=== PATIENT | female | born 1960 | race Caucasian/White ===

== ENCOUNTER 2016-10-13 08:36 | Observation (INO) | payer OTHER ==
[2016-10-05 08:49] LABS: BASOPHILS 0.4 %; BASOPHILS ABSOLUTE 0.03 10/3/uL (0.0-0.16); EOSINOPHILS 2.4 %; EOSINOPHILS ABSOLUTE 0.17 10/3/uL (0.0-0.53); HEMATOCRIT 41.3 % (36.0-48.0); HEMOGLOBIN 13.9 g/dL (12.0-16.0); IMMATURE GRANULOCYTES 0.1 %; IMMATURE GRANULOCYTES ABSOLUTE 0.01 10/3/uL (0.0-0.11); LYMPHOCYTES 22.5 %; LYMPHOCYTES ABSOLUTE 1.56 10/3/uL (0.67-4.30); MANUAL DIFF NO %; MEAN CORPUS HGB CONC 33.7 g/dL (32.0-36.0); MEAN CORPUSCULAR HEMOGLOB 28.1 pg (26.0-34.0); MEAN CORPUSCULAR VOLUME 83.6 fL (80-100); MEAN PLATELET VOLUME 8.2 fL (9.2-13.0); MONOCYTES 5.5 %; MONOCYTES ABSOLUTE 0.38 10/3/uL (0.21-1.20); NEUTROPHILS 69.1 %; NEUTROPHILS ABSOLUTE 4.79 10/3/uL (2.02-8.40); PLATELET COUNT 303 10/3/uL (150-400); RBC DISTRIBUTION WIDTH 13.7 % (12.0-16.0); RED CELL COUNT 4.94 10/6/uL (4.0-5.6); WHITE BLOOD CELLS 6.9 10/3/uL (4.5-10.5)
[2016-10-05 08:57] LABS: BUN (BLOOD UREA NITROGEN) 14 MG/DL (6-23); CALCIUM, SERUM 9.1 MG/DL (8.5-10.4); CHLORIDE, SERUM 108 MMOL/L (96-112); CO2 (CARBON DIOXIDE) 27 MMOL/L (24-34); CREATININE 0.65 MG/DL (0.55-1.02); GFR AFRICAN AMERICAN 114 ML/MIN (>=60); GFR NON AFRICAN AMERICAN 99 ML/MIN (>=60); GLUCOSE, SERUM 85 MG/DL (60-99); POTASSIUM, SERUM 3.7 MMOL/L (3.5-5.3); SODIUM, SERUM 143 MMOL/L (135-148)
--- NOTE | ~2016-10-13 | OP ---
Record Of Operation [facility] [address] [place]. [address] NAME: DONNA STRANGE : 58 STATUS : ADM David PAT#: [id number] AGE: 56 ADM/REG DATE : 10/13/16 MR#: [id number] REPORT SERV DATE: 10/13/16 DICTATED BY: LOVELY DE LA ROSA DATE: 10/13/16 REPORT STATUS : Draft TRANSCRIBED BY: MODJohnny DATE: 10/13/16 DATE OF PROCEDURE: 10/13/2016 SERVICE: Otolaryngology. PREOPERATIVE DIAGNOSES: 1. Thyroid goiter. 2. Suspicious nodule. POSTOPERATIVE DIAGNOSES: 1. Thyroid goiter. 2. Suspicious nodule. PROCEDURE: Total thyroidectomy. ANESTHESIA: General endotracheal anesthesia with a NIM monitoring tube. FINDINGS: The patient had an enlarged very rubbery thyroid gland with multiple nodules. The right recurrent laryngeal nerves were identified and stimulated in the case. Parathyroid glands were left in situ. 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 Genetic testing can be done and the estimated risk for cancer was approximately 40%. Given this fact and her compressive symptoms, I recommended total thyroidectomy. STATEMENT OF OPERATION: The patient was brought to the operating room in supine position, transferred over to the operating room table. After all pressure points were padded and general endotracheal anesthesia was established with a NIM monitoring tube. Her neck was placed in slight extension with a shoulder roll and incision was marked out in a natural relaxed skin tension line roughly over the area of the cricoid. It was injected with 4 mL of 1% lidocaine with epinephrine. She was then prepped and draped in the usual fashion. A #15 blade was used to make the incision down through the platysma. [place] skin retracting hooks were placed into the wound. The midline raphe between the strap muscles was identified and dissected bluntly with baby Metzenbaum scissors and Bovie cautery. The strap muscles were then gently lifted off the anterior face of the left hemithyroid. The superior pole was released from its fibrovascular attachments using a Doty dissector and Harmonic scalpel. In this fashion, we worked from superior to inferior releasing all the fibrovascular attachments. I did transect about a third of the strap muscles due to the size of the thyroid gland. The thyroid gland was then delivered into the wound and released from its attachments to the trachea by dividing Dorado ligaments. The recurrent laryngeal nerve and parathyroid glands were well seen. I completed the hemithyroidectomy by releasing all Dorado ligaments around to the right-hand side. The right side of the gland was removed in a similar fashion. Once the surgery was completed, both nerves were stimulated and found to be functioning. The gland was evaluated on the back table for any evidence of parathyroid glands and then placed in formalin and sent for permanent analysis. The wound Record Of [facility] [address] [place]. [address] NAME: DONNA STRANGE : 58 STATUS : ADM David PAT#: [id number] AGE: 56 ADM/REG DATE : 10/13/16 MR#: [id number] REPORT SERV DATE: 10/13/16 DICTATED BY: LOVELY DE LA ROSA DATE: 10/13/16 REPORT STATUS : Draft TRANSCRIBED BY: BELINDA DATE: 10/13/16 was irrigated thoroughly with warm saline. Fibrillar gauze were placed in the gutters on both sides. The transected strap muscles were re-closed by reapproximating the fascia overlying them with interrupted 3-0 Vicryl sutures. The strap muscles themselves were then closed superiorly with interrupted 3-0 Vicryl sutures leaving a large inferior opening. Next, the platysma muscle was closed with interrupted 3-0 Vicryl sutures. The deep dermal layer was closed with interrupted 4-0 Vicryl sutures, and finally, the skin was approximated with a running 5-0 Monocryl suture. The skin edges were cleansed and dried. Mastisol solution was applied to the outside and half-inch Steri-Strips were placed perpendicularly. This concluded the case. The patient was turned back over to Anesthesia, where she awoke, was extubated, and transferred to the PACU in stable condition. PS/BELINDA Lovely De La Rosa MD / [id number] CC: Lovely De La Rosa MD
[~2016-10-13 08:36] MED LIST: MOBIC7.5 PO; NORCO1 TA2 PO; SYN.025B PO
[2016-10-13 11:44] LABS: PTH (INTRAOPERATIVE) 58.4 PG/ML (10.0-65.0); PTH TAT 0 Hrs 25 Mins
[2016-10-13 13:49] LABS: PTH (INTRAOPERATIVE) 59.8 PG/ML (10.0-65.0); PTH TAT 0 Hrs 00 Mins
[2016-10-14] MEDS ORDERED: NORCO1 TA2 PO (08:21)
== END 2016-10-14 10:31 | disposition home or self-care (01) ==
LOC: SDC 08:36 → SDC/OF 14:11 → 4SO 14:52
PROVIDERS: Otolaryngology
PROC: 0GTK0ZZ Resection of Thyroid Gland, Open Approach (ICD-10-PCS; principal; 2016-10-13 10:00)
DX: C73 Malignant neoplasm of thyroid gland (principal); E03.9 Hypothyroidism, unspecified; I10 Essential (primary) hypertension; M17.12 Unilateral primary osteoarthritis, left knee; E66.01 Morbid (severe) obesity due to excess calories; Z68.41 Body mass index [BMI] 40.0-44.9, adult; Z88.6 Allergy status to analgesic agent; Z90.710 Acquired absence of both cervix and uterus; Z79.899 Other long term (current) drug therapy; Z98.890 Other specified postprocedural states
CPT/HCPCS: 80048; 83970; 85025; 88305; 88307; 88331; 88342; 93005; 96374; 96375; 96376; A9270-GY; G0378; J0690; J2250; J2270; J2405; J2710; J3010